=== PATIENT | female | born 1970 | race African-American/Black ===

== ENCOUNTER 2019-04-13 23:44 | Emergency (ER) | payer OTHER ==
[~2019-04-13] VITALS: Ht 154.9 cm; Wt 69.0 kg
[2019-04-14 00:40] LABS: BASOPHILS % 0.7 % (0.0-2.0); EOSINOPHILS % 1.6 % (0.0-5.0); HEMATOCRIT. 29.4 % (36.0-48.0); HEMOGLOBIN. 9.3 g/dL (12.0-16.0); LYMPHOCYTES % 23.6 % (20.0-50.0); MEAN CORPUSCULAR HEMOGLOBIN 22.8 pg (28.0-32.0); MEAN CORPUSCULAR VOLUME 72.2 fL (81.0-99.0); MEAN PLATELET VOLUME 7.9 fl (7.4-10.4); MONOCYTES % 5.4 % (2.0-8.0); NEUTROPHILS % 68.7 % (40.0-76.0); PLATELET 270 x1000/uL (130-400); RED BLOOD CELL COUNT 4.07 mill/uL (4.2-5.4); RED CELL DISTRIBUTION WIDTH 17.3 % (11.6-14.6)
[2019-04-14 00:47] LABS: CHLORIDE 107 mEq/L (98-107)
[2019-04-14 02:01] VITALS: BP 121/75
== END 2019-04-14 02:02 | disposition home or self-care (01) ==
LOC: ER 23:44
DX: R55 Syncope and collapse (principal); D64.9 Anemia, unspecified; R42 Dizziness and giddiness; R53.1 Weakness; Z88.0 Allergy status to penicillin
CPT/HCPCS: 36415; 84484; 93005; 99284